=== PATIENT | female | born 1940 | race Caucasian/White ===

== ENCOUNTER → 2021-05-27 | Outpatient (CLI) | payer OTHER ==
[~2021-05-27] MED LIST: APAP650 PO; ASPIRIN EC81 M1 PO; AZELASTINE205.5 MCG/ NARES; BENZONATATE200 MG PO; CALCIUM 500 +1 EAC5 PO; CALCIUM500 MG PO; D3-200050 MCG PO; DESYREL50 MG PO; DIOVAN160 MG PO; DULCOLAX STOOL100 M1 PO; FAMOTIDINE 20 M20 MG PO; FENTANYL PA25 MCG/HR TD; FOSAMAX 70 MG T70 MG PO; FUROSEMIDE 40 M40 MG PO; GLUCOPHAGE500 MG PO; HYDROCODON-ACE1 EACH PO; HYDROCORT 2.5%-30 GM TOP; LEVO-T25 MCG PO; LISINOPRIL5 MG PO; LOPRESSOR PO; LORATIDINE 10 M10 M1 PO; MILK OF MA400 MG/5 M PO; MOBIC15 MG PO; NORVASC 5 MG TAB5 MG PO; SERTRALINE HCL100 MG PO; TEKTURNA HCT 31 EAC1 PO; TELMISARTAN80 MG PO; TRAMADOL 50 MG50 MG PO; TYLENOL325 M1 PO; WELLBUTRIN SR150 M1 PO; WELLBUTRIN SR150 MG PO; ZOLOFT 50 MG TA50 M1 PO
== END ==
LOC: RAD 16:10
PROVIDERS: ATTEND Anesthesiology Pain Medicine
DX: M25.78 Osteophyte, vertebrae (principal)

== ENCOUNTER → 2021-05-27 | Outpatient (CLI) | payer OTHER ==
[~2021-05-27] VITALS: Ht 167.6 cm; Wt 95.3 kg
--- NOTE | ~2021-05-27 | HPC ---
[facility] [place] [address] PAIN MANAGEMENT CONSULTATION Name: REDDY LEVIN [id number] Admission: 05/27/21 Attend Phys: Wojciech Lynn DO Discharge: Date of : 44 Report #: [id number] THIS REPORT FOR: cc: Sarika Crawley Ellen Kay RNP Johnson, James E. DO ~ cc: JAMES Abdul DATE OF SERVICE: 05/27/2021 CHIEF COMPLAINT: Chronic low back pain, left hip pain. HISTORY OF PRESENT ILLNESS: As you know, the patient is a 81-year-old female who has had a longstanding history of low back pain, seen in consultation at your clinic on 01/06/2021. At that time, she was advised that her second opinion with Dr. Duran would not constitute a surgical option at this point. She recently fractured her left femur and underwent ORIF and was sent to [facility] for rehabilitation. Apparently, the patient ultimately contracted COVID-19 and this has complicated her recovery. She is no longer even standing or walking due to the pain, believed to be from the ORIF. She sought evaluation through Orthopedics who advised the patient that intra-articular hip injection might be recommended. The patient was sent to diagnostic imaging to undergo the procedure, but apparently they were unable to place the patient on the table and was unable to perform the injection. She continues to experience left hip pain for which she wants to discuss treatment options today. The patient was actually referred to our clinic by nurse practitioner, Sarika Crawley for the possibility of undergoing a spinal cord stimulator trial implantation. The patient today is unable to answer most of the questions. She seems quite confused and disoriented. I do not feel she is competent enough to make any decisions for her treatment. Every question posed to the patient has been answered by the individual that has accompanied her today, which I believe is her . She has been referred to our service by the Neurosurgery team to discuss the possibility of a spinal cord stimulator trial, but is also very concerned about her left hip. PAST MEDICAL HISTORY: 1. Osteoarthritis. 2. Hypertension. 3. Headaches. 4. Depression. 5. Chronic ischemic atrophic brain. 6. Irritable bowel syndrome. 7. Rheumatic fever. 8. Dysthymic disorder. 9. Failed back syndrome. 10. Chronic low back pain. 11. [place] [address] PAIN MANAGEMENT CONSULTATION Name: REDDY LEVIN Teo Room #: REG [facility]ep#: [id number] Admission: 05/27/21 Attend Phys: Wojciech Lynn DO Discharge: Date of : 42 Report #: [id number] 12. Chronic back pain. PAST SURGICAL HISTORY: 1. Tonsillectomy. 2. Cholecystectomy. 3. Laparoscopic decompression and laminectomy. 4. Bilateral total knee replacements. 5. Right total hip arthroplasty. 6. ORIF of the left femur due to fracture. SOCIAL HISTORY: The patient denies tobacco, alcohol or IV or illicit drug use. She was a contractor general engineering. She is no longer working. She is not receiving disability income. She is not in litigation in regards to pain. She is accompanied by her present in room today. REVIEW OF SYSTEMS: Positive for wearing corrective eyewear, hearing loss with tinnitus, chronic earaches and drainage, chronic sinus problems, frequent urination, incontinence or dribbling to urine, near-complete disability and cognitive dysfunction. All other review of systems is negative per 12-point review of systems other than those listed in history of present illness. Pain impact is 43/70, moderate interference of daily activities secondary to pain. ALLERGIES: No reported drug allergies. CURRENT MEDICATIONS: Aspirin 81 mg per day, benzonatate 200 mg once a day, sertraline 50 mg once a day, trazodone 50 mg p.o. at bedtime, metoprolol 50 mg b.i.d., amlodipine 5 mg once a day, meloxicam 15 mg once a day, hydrocodone/acetaminophen 5/500 b.i.d., Tekturna 300/25 mg once a day. IMAGING: None available. PQRS: The patient has known arthritic changes of the cervical spine, lumbar spine, bilateral hips, bilateral knees, status post replacement. She is not treated for rheumatoid arthritis. She is placing pain intensity at 8/10. She is a fall risk and has had multiple falls. She is not on blood thinners, but is treated for hypertension. She is on no opioids, has a low opioid addiction potential based on assessment tool. Pain impact is 43/70, moderate interference of daily activities secondary to pain. PHYSICAL EXAMINATION: VITAL SIGNS: Blood pressure 117/70, pulse 66, respiratory rate 16 and unlabored. The patient is 96% on room air. Height 5 feet 6 inches tall, weight 210 pounds, BMI calculated 33.9. GENERAL: Well-developed, well-nourished, well-hydrated 81-year-old female appearing her stated age, placing pain today at 8/10. HEENT: Normocephalic, atraumatic. Pupils equal, round and responsive to light. [facility] [address] [place] [address] PAIN MANAGEMENT CONSULTATION Name: REDDY LEVIN Room #: [facility]#: [id number] Admission: 05/27/21 Attend Phys: Wojciech Lynn DO Discharge: Date of : 42 Report #: [id number] She is wearing a mask in compliance with COVID-19 regulations. She is an extremely poor historian, not answering any of the questions posed to her today. LUNGS: Appear clear. No wheezes, rhonchi or rales. CARDIOVASCULAR: Regular. No appreciable gallop or rub. ABDOMEN: Soft, obese. EXTREMITIES: Show no clubbing, no cyanosis. There is 1+ nonpitting lower extremities edema bilaterally. MUSCULOSKELETAL: The patient has pain generated with movement of the left hip. There is a significant amount of crepitus with movement. Pain is exacerbated with trying to stand from a seated position directly in the left hip. There is some palpatory tenderness over the paraspinal musculature of lower lumbar spine. No spinous process tenderness. Seated straight leg raising negative. Supine straight leg raising is unobtainable as the patient is unwilling to participate. There does not appear to be any ankle clonus and Babinski is downgoing. ASSESSMENT: 1. Left hip pain. 2. Left hip severe osteoarthritis. 3. Recent left hip fracture with intramedullary nailing. 4. Chronic low back pain. 5. Lumbosacral spondylosis without radiculopathy. 6. Chronic intractable pain. PLAN: 1. The patient has been referred to our service by her Neurosurgery team to discuss the possibility of looking towards a spinal cord stimulator as a treatment option. Given the current condition of the patient and her inability to answer questions as well as her inability to localize symptoms, I do not feel she is a candidate for spinal cord stimulator trial. The patient have to be of good cognitive capabilities to be able to determine whether or not the device itself is providing good benefit and not only does that have to occur during the trial process, but the patient has to be cognitively aware enough to be able to function with the technology and be able to establish programming parameters to be able to utilize the device appropriately to place the device on or off and also be able to charge the device. At present, the patient does not appear to this physician that she would be able to do this consistently. At this juncture, I would not recommend this patient to move on with a spinal cord stimulator trial implantation. She has been provided the opportunity to maybe look towards an intrathecal pump and this might be in a more effective treatment option to address her chronic generalized pain issues. We did describe to the patient and the who is actually answering all the questions today that the spinal cord stimulator could improve some of her low axial back pain and bilateral lower extremity symptoms, but would have no effect on the generalized pain she is describing. The patient's who is present in room today was under the impression they were moving forward with an intrathecal pump and that the spinal cord stimulator had been discounted and I am in agreement with that. [address] [address] PAIN MANAGEMENT CONSULTATION Name: REDDY LEVIN Room #: REG [facility] Michael#: [id number] Admission: 05/27/21 Attend Phys: Wojciech Lynn DO Discharge: Date of : 42 Report #: [id number] I do not feel that a spinal cord stimulator would be appropriate in this patient's case. 2. We have made no changes in the patient's medication management. We recommend the patient continue current medical therapy as prior prescribed. 3. The patient's has advised us that she was sent to undergo a left intraarticular hip injection as there was some question that her ongoing hip pain may be related to osteoarthritic changes. She apparently has severe osteoarthritic changes in the left hip and was being scheduled to undergo total hip arthroplasty, but the femoral fracture with intramedullary candace implant had to be completed as this fracture occurred spontaneously. They have not addressed this left hip issue. Orthopedics had sent the patient to undergo left intraarticular hip injection with diagnostic imaging, but apparently they were unable to place the patient on the table to undergo the procedure. They have requested that we attempt to have the patient undergo a left intra-articular hip injection today. We agreed to provide that injection. This should be of low complication rate. We have techniques we can apply that can easily place the patient on the table. The patient was advised risks and benefits of this procedure. These risks include but are not necessarily limited to bleeding, bruising, infection, worsening pain, no relief of pain, also risk of temporary or permanent muscle weakness, temporary or permanent nerve damage, possible paralysis, joint destruction and . The patient states she understood and wished to proceed. 4. We plan to see the patient back in followup visit on an as needed basis. We are hopeful that the injection provided to the left hip will improve her symptoms. She will be following up with Orthopedics in regard to this issue and possible total hip arthroplasty. 5. We wish to thank Sarika Crawley, nurse practitioner, for the opportunity to see the patient in consultation. As indicated above, I do not feel she is a candidate at this time to undergo a spinal cord stimulator trial implantation as I do not feel she can function with the device effectively given her current condition and cognition. We will be returning the patient's care to your capable services to discuss the possibility of an intrathecal pump trial. Again, we wish to thank you for the opportunity to see the patient in consultation. PROCEDURE NOTE DESCRIPTION OF PROCEDURE: Left intra-articular hip injection under fluoroscopic guidance. After obtaining written consent, the patient was then taken back to fluoroscopy suite, placed in a supine position. The image intensifier was then brought into position over the left hip. AP imaging was then obtained. The area overlying the left hip was then marked and then sterilely prepped with chlorhexidine. A 27-gauge 1-1/4-inch needle was then used to anesthetize skin and subcutaneous [facility] [address] [place] [address] PAIN MANAGEMENT CONSULTATION Name: REDDY LEVIN Room #: [facility]#: [id number] Admission: 05/27/21 Attend Phys: Wojciech Lynn DO Discharge: Date of : 42 Report #: [id number] tissue with 3 mL of 1% lidocaine. A 22-gauge 3-1/2 inch spinal needle was then advanced under fluoroscopic guidance towards the proximal head of the left femur. Needle was advanced until reaching the proximal head of the femur, then once contacting the osseous structure the needle was then retracted approximately 1 mm. After negative aspiration for heme, 0.5 mL of Omnipaque was injected demonstrating excellent left hip arthrogram. After negative aspiration for heme, 4 mL of a solution containing 1 mL 40 mg per mL, 40 mg total triamcinolone along with 3 mL of bupivacaine 0.5% was injected slowly. Needle retracted group home, flushed with 1 mL of 1% lidocaine and removed. Sterile bandage placed over injection site. There were no new motor deficits present in lower extremity following procedure. The patient tolerated the procedure well, carefully escorted to recovery room in stable condition. VAS before procedure was rated as high as 10/10. VAS after procedure in regards to the left hip 0/10. After meeting our discharge criteria, the patient discharged home. By: [id number] Wojciech Lynn DO /nt
[2021-05-27 13:52] VITALS: BP 117/70
--- NOTE | 2021-05-27 14:15 | NUR ---
Pain Clinic Assessment: 1. History of Osteoarthritis: Not Applicable History of Rheumatoid Arthritis: Not Applicable 2. Height: 5 ft. 6 in. 167.6 cm. Weight: 210.0 lb. oz. 95.256 kg. Patient's BMI: 33.9 3. Vital Signs: BP: 117/70 Pulse: 66 Resp: 16 Temp: 02 Sat: 96 ECG Mon: 4. Pain Intensity: 8 5. Fall Risk: Dizziness: N Needs help standing or walking: Y Fallen in the last 3 months: N Fall risk comments: 6. Patient on Blood Thinner: None 7. History of Hypertension: Y 8. Opioid Therapy greater than 6 weeks: Opiate Contract Signed: 9. Risk Assessment Tool Provided: 0 LOW RISK 10. Functional Assessment Tool: 11. Recreational Drug Use: Never Drug Type: Tobacco Use: Former Smoker Tobacco Type: Amount or Packs/day: How Many Years: Alcohol Use: No Frequency: Quant:
== END | disposition home or self-care (01) ==
LOC: PAIN 10:09
PROVIDERS: ATTEND Anesthesiology Pain Medicine
DX: M25.552 Pain in left hip (principal); M16.12 Unilateral primary osteoarthritis, left hip; M54.59 Other low back pain; G89.29 Other chronic pain; M47.896 Other spondylosis, lumbar region; I10 Essential (primary) hypertension; M19.90 Unspecified osteoarthritis, unspecified site; Z98.890 Other specified postprocedural states; Z96.653 Presence of artificial knee joint, bilateral; Z96.641 Presence of right artificial hip joint; Z79.899 Other long term (current) drug therapy; Z90.49 Acquired absence of other specified parts of digestive tract